=== PATIENT | male | born 1955 | race American Indian/Alaskan Native ===

== ENCOUNTER 2018-05-19 05:57 | Day surgery (SDC) | payer MEDICARE, OTHER ==
[2018-05-09 16:18] VITALS: BMI 23.7
[2018-05-19 06:50] LABS: BASO # 0.1 K/uL (0.0-0.2); BASO % 1.3 % (0.0-2.0); EOS # 0.3 K/uL (0.0-0.7); EOS % 7.1 % (0.0-4.0); HEMOGLOBIN 14.5 g/dL (12.0-18.0); LYMPH % 22.6 % (20.0-40.0); MEAN CELL VOLUME 87.4 fl (80.0-94.0); MEAN CORPUSCULAR HEMOGLOBIN 28.5 pg (27.0-31.0); MEAN CORPUSCULAR HGB CONC 32.7 g/dL (33.0-37.0); MEAN PLATELET VOLUME 7.2 fl (7.2-11.7); MONO # 0.5 K/uL (0.0-0.8); MONO % 11.5 % (0.0-10.0); NEUT # 2.6 K/uL (1.8-7.0); NEUT % 57.5 % (50.0-75.0); RBC 5.07 Mil/uL (4.40-5.90); RED CELL DISTRIBUTION WIDTH 13.6 % (11.5-14.5); WHITE BLOOD COUNT 4.5 K/uL (4.8-10.8)
[2018-05-19] MEDS ORDERED: Lactated Ringer's 1,000 ML IV ONE ×4 (07:15→11:04)
--- NOTE | 2018-05-19 07:18 | CP.PCM.CON ---
History of Present Illness - History of Present Illness History of Present Illness: ORthopedic consultation Dr. Rodriguez 62M complains of left shoulder pain due to DJD failed conservative mgmt and elected for total shoulder replacement. He has prior shoulder surgery on both shoulders. PSH: B THR, R TKR, achilles PMH: Depression denies history of bleeding disorder, blood clots, CAD/CVA/stents, seizure disorder Review of Systems - Review of Systems All systems: reviewed and no additional remarkable complaints except - Musculoskeletal Musculoskeletal: As Per HPI Past Patient History - Past Medical History & Family History Past Medical History?: Yes Past Family History: Reviewed and not pertinent - Past Social History Smoking Status: Unknown If Ever Smoked - CARDIAC Hx Cardiac Disorders: No - PULMONARY Hx Respiratory Disorders: Yes Hx Asthma: Yes - NEUROLOGICAL Hx Neurological Disorder: No - HEENT Hx HEENT Problems: Yes Other/Comment: loss vision 30% - RENAL Hx Chronic Kidney Disease: No - ENDOCRINE/METABOLIC Hx Endocrine Disorders: No - HEMATOLOGICAL/ONCOLOGICAL Hx Blood Disorders: No Hx Blood Transfusions: No - INTEGUMENTARY Hx Dermatological Problems: No - MUSCULOSKELETAL/RHEUMATOLOGICAL Hx Herniated Disk: Yes (lumbar) - GENITOURINARY/GYNECOLOGICAL Hx Genitourinary Disorders: No - PSYCHIATRIC Hx Psychophysiologic Disorder: Yes Hx Depression: Yes - SURGICAL HISTORY Hx Surgeries: Yes Hx Arthroscopy: Yes (acl knees, B shoulder) Hx Joint Replacement: Yes (andrey. hips; right knee) Other/Comment: lung biopsy - ANESTHESIA Hx Anesthesia: Yes Hx Anesthesia Reactions: No Hx Malignant Hyperthermia: No Has any member of the family had a problem w/ anesthesia?: No Meds Allergies/Adverse Reactions: Allergies Allergy/AdvReac Type Severity Reaction Status Date / Time PORK Allergy HIVES Verified 05/19/18 09:19 Physical Exam - Constitutional Appears: Well, No Acute Distress - Head Exam Head Exam: ATRAUMATIC - Expanded Upper Extremities Exam Left Neuro motor exam: finger 2-5 abduction intact, thumb abduction, thumb IP flexion intact, thumb opposition intact, wrist extension intact Neurosensory exam: median nerve intact, radial nerve intact, ulnar nerve intact (noted axillary nerve weakness, deltoid atrophy) Vascular exam: radial pulse, normal capillary refill - Neurological Exam Neurological exam: Alert, Oriented x3 - Psychiatric Exam Psychiatric exam: Normal Affect, Normal Mood - Skin Skin Exam: Dry, Intact, Normal Color, Warm Additional comments: well healed [id number] scar lateral shoulder Results - Vital Signs Recent Vital Signs: Last Vital Signs Temp 98 F 05/19/18 07:03 Pulse 85 05/19/18 07:03 Resp 20 05/19/18 07:03 BP 124/89 05/19/18 07:03 Pulse Ox 98 05/19/18 07:03 - Labs Result Diagrams: 05/19/18 06:45 Labs: Laboratory Results - last 24 hr 05/19/18 06:45 WBC 4.5 L RBC 5.07 Hgb 14.5 Hct 44.3 MCV 87.4 MCH 28.5 MCHC 32.7 L RDW 13.6 Plt Count 278 MPV 7.2 Neut % (Auto) 57.5 Lymph % (Auto) 22.6 [place] % (Auto) 11.5 H Eos % (Auto) 7.1 H Baso % (Auto) 1.3 Neut # (Auto) 2.6 Lymph # (Auto) 1.0 [place] # (Auto) 0.5 Eos # (Auto) 0.3 Baso # (Auto) 0.1 Assessment & Plan (1) DJD of left shoulder Assessment and Plan: for total shoulder replacement medical clearance on chart, reviewed NPO T&S Status: Acute
[2018-05-19] MEDS ORDERED: Rocuronium 10 mg/ml (5 ml) ONE ×2 (07:20→09:00)
[2018-05-19] MEDS ORDERED: Succinylcholine Chloride 20 mg/ml Syr (5 ml) IV ONE (07:20)
[2018-05-19] MEDS ORDERED: Propofol 10 mg/ml Inj (20 ML) ONE (07:20)
[2018-05-19] MEDS ORDERED: Etomidate 20 mg/10ml Inj IV ONE (07:21)
[2018-05-19] MEDS ORDERED: Bupivacaine HCl/Epi 0.5% 1:20000 30 ML SOL IJ ONE (07:25)
[2018-05-19] MEDS ORDERED: EPINEPHrine 1 mg/ml (1:1000) Inj ONE (07:29)
[2018-05-19] MEDS ORDERED: Absorbable Gelatin Sponge Size 12-7 ONE (07:29)
[2018-05-19] MEDS ORDERED: Thrombin Topical 5,000 Int Units Spray Kit ONE (07:30)
--- NOTE | 2018-05-19 07:37 | CP.PCM.HP ---
History of Present Illness - History of Present Illness History of Present Illness: CC: Left shoulder pain HPI: 62 year old male patient, with PMHx of asthma, depression, and sarcoidosis, seen and evaluated in [facility] for left total shoulder replacement. Patient states that his shoulder has been hurting him for 2-3 years and he has failed conservative treatment requiring surgical intervention at this time. He states t hat he has been NPO since yesterday evening. He admits to having surgery in the past and denies any adverse reactions to anesthesia. Denies nausea, vomiting, fever, shortness of breath, chest pains. PMD: Bang Ortiz MD PMHx: Asthma, depression, sarcoidosis, decreased vision to eyes b/l PSHx: B/L knee arthroscopy, R total knee replacement, b/l total hip replacement, lung biopsy SHx: 1 cigar every other month, socially drinks alcohol, cocaine use 2 weeks ago Meds: Valium, Seroquel, Lasix, Pred Forte, Vitamin B, Fish oil ALL: Pork Present on Admission - Present on Admission Any Indicators Present on Admission: No Review of Systems - Constitutional Constitutional: As Per HPI - EENT Eyes: As Per HPI Past Patient History - Past Medical History & Family History Past Medical History?: Yes Past Family History: Reviewed and not pertinent - Past Social History Smoking Status: Unknown If Ever Smoked Cigar Use: Yes (Once every other month ) Alcohol: Social Drugs: Cocaine - CARDIAC Hx Cardiac Disorders: No - PULMONARY Hx Respiratory Disorders: Yes Hx Asthma: Yes - NEUROLOGICAL Hx Neurological Disorder: No - HEENT Hx HEENT Problems: Yes Other/Comment: loss vision 30% - RENAL Hx Chronic Kidney Disease: No - ENDOCRINE/METABOLIC Hx Endocrine Disorders: No - HEMATOLOGICAL/ONCOLOGICAL Hx Blood Disorders: No Hx Blood Transfusions: No - INTEGUMENTARY Hx Dermatological Problems: No - MUSCULOSKELETAL/RHEUMATOLOGICAL Hx Herniated Disk: Yes (lumbar) - GENITOURINARY/GYNECOLOGICAL Hx Genitourinary Disorders: No - PSYCHIATRIC Hx Psychophysiologic Disorder: Yes Hx Depression: Yes - SURGICAL HISTORY Hx Surgeries: Yes Hx Arthroscopy: Yes (acl knees, B shoulder) Hx Joint Replacement: Yes (andrey. hips; right knee) Other/Comment: lung biopsy - ANESTHESIA Hx Anesthesia: Yes Hx Anesthesia Reactions: No Hx Malignant Hyperthermia: No Has any member of the family had a problem w/ anesthesia?: No Meds Allergies/Adverse Reactions: Allergies Allergy/AdvReac Type Severity Reaction Status Date / Time PORK Allergy HIVES Verified 05/09/18 16:18 Physical Exam - Constitutional Appears: Non-toxic, No Acute Distress - Head Exam Head Exam: ATRAUMATIC, NORMOCEPHALIC - Eye Exam Eye Exam: Normal appearance Pupil Exam: NORMAL ACCOMODATION - ENT Exam ENT Exam: Normal Exam - Neck Exam Neck exam: Positive for: Normal Inspection - Respiratory Exam Respiratory Exam: Clear to Auscultation Bilateral, NORMAL BREATHING PATTERN - Cardiovascular Exam Cardiovascular Exam: REGULAR RHYTHM - GI/Abdominal Exam GI & Abdominal Exam: Normal Bowel Sounds, Soft - Extremities Exam Extremities exam: Positive for: normal inspection - Neurological Exam Neurological exam: Alert, Oriented x3 - Psychiatric Exam Psychiatric exam: Normal Affect, Normal Mood - Skin Skin Exam: Warm Results - Vital Signs Recent Vital Signs: Last Vital Signs Temp 98 F 05/19/18 07:03 Pulse 85 05/19/18 07:03 Resp 20 05/19/18 07:03 BP 124/89 05/19/18 07:03 Pulse Ox 98 05/19/18 07:03 - Labs Result Diagrams: 05/19/18 06:45 Labs: Laboratory Results - last 24 hr 05/19/18 06:45 WBC 4.5 L RBC 5.07 Hgb 14.5 Hct 44.3 MCV 87.4 MCH 28.5 MCHC 32.7 L RDW 13.6 Plt Count 278 MPV 7.2 Neut % (Auto) 57.5 Lymph % (Auto) 22.6 [place] % (Auto) 11.5 H Eos % (Auto) 7.1 H Baso % (Auto) 1.3 Neut # (Auto) 2.6 Lymph # (Auto) 1.0 [place] # (Auto) 0.5 Eos # (Auto) 0.3 Baso # (Auto) 0.1 Assessment & Plan - Assessment and Plan (Free Text) Assessment: 62 year old male patient, with PMHx of asthma, depression, and sarcoidosis, admitted for left total shoulder replacement. Plan: 1) Left shoulder degenerative joint disease - Acute - Patient plan for OR today for L total shoulder replacement with Dr. Rodriguez - Patient medically optimized for surgery - NPO status confirmed - Medical clearance from PMD in chart- CBC, CXR, ECG reviewed 2) Asthma - Chronic 3) Depression - Chronic 3) DVT prophylaxis -SCDs for now - Date & Time Date: 05/19/18 Time: 07:29
[2018-05-19] MEDS ORDERED: Midazolam 2 MG/2 ML VIAL ONE (08:06)
[2018-05-19] MEDS ORDERED: Sevoflurane - Inhalation Anesthetic Liq (250 ml) ONE (08:39)
[2018-05-19 08:43] LABS: BARBITURATES, UR NEGATIVE (NEGATIVE); BENZODIAZEPINES, UR POSITIVE (NEGATIVE); OPIATES, UR NEGATIVE (NEGATIVE); PHENCYCLIDINE, UR NEGATIVE (NEGATIVE)
[2018-05-19] MEDS ORDERED: Dexamethasone 4 mg/1 ml ONE (08:43)
[2018-05-19] MEDS ORDERED: Phenylephrine 10 mg/ml Inj ONE (09:12)
[2018-05-19] MEDS ORDERED: Neostigmine 1:1000 (1 mg/ml) Inj ONE (10:30)
--- NOTE | 2018-05-19 10:57 | PCM.SURG1 ---
Surgeon's Initial Post Op Note - Surgeon's Notes Surgeon: Michael Traffic I Manager: 1st assist Behzad Longoria PA-C/ 2nd assist DIMITRIS Puente Type of Anesthesia: General Endo, Block Regional Anesthesia Administered By: DR fenton Pre-Operative Diagnosis: Rotator cuff arthropathy L shoulder Operative Findings: arthropathy L shoulder. retained anchors. labral tear L shoulder Post-Operative Diagnosis: as above Operation Performed: L Reverse total shoulder replacement. repair L rotator cuff. Biceps tenodesis (open) Specimen/Specimens Removed: rotator cuff/arthritic head Estimated Blood Loss: EBL {In ML}: 40 Blood Products Given: N/A Drains Used: No Drains Post-Op Condition: Fair Date of Surgery/Procedure: 05/19/18 Time of Surgery/Procedure: 09:00 (time in room/anesthesia indcution time)
[2018-05-19] MEDS ORDERED: Sodium Chloride 0.9% 1,000 ML IV SCH (11:15)
--- NOTE | 2018-05-19 11:45 | PCM.ANESB1 ---
Interscalene Block - Brachial Plexus Date of Procedure: 05/19/18 Anesthesiologist: Saturnino Pre-Procedure Diagnosis: Advanced arthritis left shoulder Post-Procedure Diagnosis: Same Procedure Performed: Interscalene Block of Brachial Plexus Left - Procedure Interscalene Block of Brachial Plexus: This procedure was explained to the patient that it is for post-operative pain management. Consent was obtained after a thorough discussion with the patient regarding the benefits and possible complications of local anesthetic block of the Brachial Plexus at the Interscalene area. The patient was brought to the Operating Room and standard monitors were applied. Time out was held with the circulating nurse to confirm the correct surgery and appropriate block. After applying Oxygen by nasal cannula and administering IV Sedation, the patient's head was gently rotated away from the __left____operative shoulder and the anterior scalene groove was carefully palpated. The ultrasound transducer was then applied to the skin in the transverse plane and the brachial plexus was visualized lateral to the carotid artery and in between the anterior and middle scalene muscles. After identification,the anterior lateral portion of the neck was prepped with Chloraprep and Lidocaine 1% was injected subcutaneously for topical analgesia. At this point, a # 22 gauge Stimuplex 2 inches insulated needle was inserted into the interscalene groove and directed in a caudal and midline direction. The needle was inserted lateral to the ultrasound transducer in-plane towards the brachial plexus in a [id number] direction. Needle advancement was performed carefully under direct ultrasound visualization. Nerve stimulator was used and twitched of the affected extremity including the hand brachialis muscles, biceps and the deltoid was obtained at a current of __0.4___MA. After repeated negative aspiration,__2___cc of_0.5% ____,___bupivicaine with 1:200,000 epinephrine were injected and this was followed with _28____cc of __0.5___% _Bupivacaine with 1:200,000 epinephrine . Under ultrasound guidance the local anesthetics were observed surrounding the roots of the brachial plexus. The needle was removed intact. The patient had stable vital signs, was conscious and in no apparent distress. The patient tolerated the interscalene block of the bracheal plexus well with stable vital signs and was prepared for subsequent surgery.
[2018-05-19] MEDS: HYDROmorphone 0.5 mg/0.5 ml ISec IVP PRN ×3 (11:55→20:53)
--- NOTE | 2018-05-19 12:39 | RAD ---
Date of service: 05/19/2018 PROCEDURE: Radiographs of the Left Shoulder HISTORY: in pacue s/p TSA COMPARISON: No prior. FINDINGS: BONES: Patient status post left total shoulder replacement with hardware in situ in adequate apparent position. No destructive bony lesion appreciated or definite fracture identified. JOINTS: No subluxation or dislocation. Degenerative changes are mild to moderate at the acromioclavicular joint. SOFT TISSUES: Postop changes are mild overlying left shoulder with skin ashley present. OTHER FINDINGS: None. IMPRESSION: Status post left TSR with limited postoperative change appreciated. Degenerative changes acromioclavicular joint left shoulder.
[2018-05-19] MEDS: Lactated Ringer's 1,000 ML IV SCH ×2 (16:42→22:30)
[2018-05-19] MEDS: Oxycodone/Acetaminophen 5/325 mg Tab PO PRN ×2 (18:46→23:38)
[2018-05-19] MEDS: ceFAZolin 2 GM in Sodium Chloride 0.9% 100 ML IVPB SCH (19:29)
[2018-05-20] MEDS: HYDROmorphone 0.5 mg/0.5 ml ISec IVP PRN ×4 (01:08→14:15)
[2018-05-20] MEDS: ceFAZolin 2 GM in Sodium Chloride 0.9% 100 ML IVPB SCH (01:26)
[2018-05-20 06:12] LABS: HEMOGLOBIN 12.1 g/dL (12.0-18.0); MEAN CELL VOLUME 87.3 fl (80.0-94.0); MEAN CORPUSCULAR HEMOGLOBIN 28.1 pg (27.0-31.0); MEAN CORPUSCULAR HGB CONC 32.2 g/dL (33.0-37.0); RBC 4.32 Mil/uL (4.40-5.90); RED CELL DISTRIBUTION WIDTH 13.1 % (11.5-14.5); WHITE BLOOD COUNT 13.3 K/uL (4.8-10.8)
[2018-05-20 06:22] LABS: BLOOD UREA NITROGEN 23 mg/dl (9-20); CALCIUM 9.2 mg/dL (8.4-10.2); GFR NON-AFRICAN AMERICAN 56
--- NOTE | 2018-05-20 07:55 | CP.PCM.PN ---
Subjective - Date & Time of Evaluation Date of Evaluation: 05/20/18 Time of Evaluation: 07:30 - Subjective Subjective: Patient seen and examined at bedside comfortable. Pain well controlled overnight due to effects of nerve block. Notes that he has had difficulties ambulating due to BLE weakness and imbalance prior to yesterday's surgery. Otherwise no other complaints in regards to L shoulder. Denies CP/SOB/N/fever/dizziness. Objective - Vital Signs/Intake and Output Vital Signs (last 24 hours): Temp Pulse Resp BP Pulse Ox 97.8 F 79 19 99/65 L 96 05/20/18 03:04 05/20/18 03:04 05/20/18 03:04 05/20/18 03:04 05/20/18 03:04 - Medications Medications: Current Medications Diazepam (Valium) 10 mg PO DAILY [facility] Docusate Sodium (Colace) 100 mg PO BID [facility] Last Admin: 05/19/18 18:41 Dose: 100 mg Hydromorphone HCl (Dilaudid) 0.5 mg IVP Q4 PRN PRN Reason: Pain, severe (8-10) Last Admin: 05/20/18 05:11 Dose: 0.5 mg Sodium Chloride (Sodium Chloride 0.9%) 1,000 mls @ 80 mls/hr IV .[id number] [facility] Stop: 05/20/18 11:02 Last Admin: 05/19/18 16:43 Dose: Not Given Lactated Ringer's (Lactated Ringer's) 1,000 mls @ 100 mls/hr IV .Q10H [facility] Last Admin: 05/19/18 22:30 Dose: Not Given Oxycodone/Acetaminophen (Percocet 5/325 Mg Tab) 1 tab PO Q4 PRN PRN Reason: Pain, moderate (4-7) Stop: 05/22/18 11:02 Last Admin: 05/19/18 23:38 Dose: 1 tab Quetiapine Fumarate (Seroquel) 400 mg PO HS [facility] Last Admin: 05/19/18 23:21 Dose: 400 mg - Labs Labs: 05/20/18 05:30 05/20/18 05:30 - Extremities Exam Additional comments: LUE: shoulder imm in place Dressings CDI sensation and motor intact AXN/MN/UN/RN radial pulse intact Assessment and Plan (1) DJD of left shoulder Assessment & Plan: POD# 1 s/p L TSR -pain control -keep immobilized in shoulder brace, NWB VALDEMAR -PT/OT, spoke to Yazmin CRYSTAL, suggest [facility] -orthopedically stable for d/c to [facility] -above d/w Dr. Rodriguez in agreement Status: Acute
[2018-05-20 08:17] VITALS: RESP 20
[2018-05-20] MEDS: Lactated Ringer's 1,000 ML IV SCH (08:21)
--- NOTE | 2018-05-20 10:19 | CP.PCM.DIS ---
Provider - Provider Date of Admission: 05/19/18 11:01 Attending physician: Javed Tucker MD Primary care physician: PMD: Bang Ortiz MD Consults: 05/19/18 11:01 Case Management Referral Routine Comment: Physician Instructions: Reason For Exam: d/c home Reason for Referral: Discharge Planning 05/19/18 12:04 Orthopedic Consult Routine Comment: Consulting Provider: Karl Rodriguez III Consulting Physician: Karl Rodriguez III Reason for Consult: TSA Time Spent in preparation of Discharge (in minutes): 30 Hospital Course - Lab Results Lab Results: Most Recent Lab Values WBC 13.3 K/uL (4.8-10.8) H D 05/20/18 05:30 RBC 4.32 Mil/uL (4.40-5.90) L 05/20/18 05:30 Hgb 12.1 g/dL (12.0-18.0) D 05/20/18 05:30 Hct 37.7 % (35.0-51.0) 05/20/18 05:30 MCV 87.3 fl (80.0-94.0) 05/20/18 05:30 MCH 28.1 pg (27.0-31.0) 05/20/18 05:30 MCHC 32.2 g/dL (33.0-37.0) L 05/20/18 05:30 RDW 13.1 % (11.5-14.5) 05/20/18 05:30 Plt Count 266 K/uL (130-400) 05/20/18 05:30 MPV 7.2 fl (7.2-11.7) 05/19/18 06:45 Neut % (Auto) 57.5 % (50.0-75.0) 05/19/18 06:45 Lymph % (Auto) 22.6 % (20.0-40.0) 05/19/18 06:45 [place] % (Auto) 11.5 % (0.0-10.0) H 05/19/18 06:45 Eos % (Auto) 7.1 % (0.0-4.0) H 05/19/18 06:45 Baso % (Auto) 1.3 % (0.0-2.0) 05/19/18 06:45 Neut # (Auto) 2.6 K/uL (1.8-7.0) 05/19/18 06:45 Lymph # (Auto) 1.0 K/uL (1.0-4.3) 05/19/18 06:45 [place] # (Auto) 0.5 K/uL (0.0-0.8) 05/19/18 06:45 Eos # (Auto) 0.3 K/uL (0.0-0.7) 05/19/18 06:45 Baso # (Auto) 0.1 K/uL (0.0-0.2) 05/19/18 06:45 Sodium 137 mmol/l (132-148) 05/20/18 05:30 Potassium 4.5 MMOL/L (3.6-5.0) 05/20/18 05:30 Chloride 98 mmol/L (98-107) 05/20/18 05:30 Carbon Dioxide 26 mmol/L (22-30) 05/20/18 05:30 Anion Gap 18 (10-20) 05/20/18 05:30 BUN 23 mg/dl (9-20) H 05/20/18 05:30 Creatinine 1.3 mg/dl (0.8-1.5) 05/20/18 05:30 Est GFR ( Amer) > 60 05/20/18 05:30 Est GFR (Non-Af Amer) 56 05/20/18 05:30 Random Glucose 139 mg/dL (75-110) H 05/20/18 05:30 Calcium 9.2 mg/dL (8.4-10.2) 05/20/18 05:30 Urine Opiates Screen Negative (NEGATIVE) 05/19/18 08:05 Urine Methadone Screen Negative (NEGATIVE) 05/19/18 08:05 Ur Barbiturates Screen Negative (NEGATIVE) 05/19/18 08:05 Ur Phencyclidine Scrn Negative (NEGATIVE) 05/19/18 08:05 Ur Amphetamines Screen Negative (NEGATIVE) 05/19/18 08:05 U Benzodiazepines Scrn Positive (NEGATIVE) 05/19/18 08:05 U Oth Cocaine Metabols Positive (NEGATIVE) H 05/19/18 08:05 U Cannabinoids Screen Negative (NEGATIVE) 05/19/18 08:05 Blood Type A POSITIVE 02/11/19 06:30 Blood Type Confirm A POSITIVE 05/19/18 07:55 Antibody Screen Negative 05/19/18 06:30 BBK History Checked No verified bt 05/19/18 06:30 - Hospital Course Hospital Course: 62 year old male patient, with PMHx of asthma, depression, and sarcoidosis, admitted for SDS extended stay following left total shoulder replacement. During his hospital course, - Date & Time of H&P Date of H&P: 05/20/18 Time of H&P: 10:22 Discharge Exam - Head Exam Head Exam: ATRAUMATIC, NORMOCEPHALIC - Eye Exam Eye Exam: Normal appearance - Respiratory Exam Respiratory Exam: NORMAL BREATHING PATTERN, UNREMARKABLE - Cardiovascular Exam Cardiovascular Exam: REGULAR RHYTHM - GI/Abdominal Exam GI & Abdominal Exam: Normal Bowel Sounds - Extremities Exam Additional comments: Left upper extremity immobilized in splint Patient able to wiggle fingers CFT < 3 seconds - Neurological Exam Neurological exam: Alert, Oriented x3 - Psychiatric Exam Psychiatric exam: Normal Affect, Normal Mood - Skin Skin Exam: Warm Discharge Plan - Follow Up Plan Condition: GOOD Disposition: HOME/ ROUTINE Instructions: Shoulder Replacement (DC), How to Use a Shoulder Sling Additional Instructions: follow up with primary MD and Dr. Rodriguez 1 week or as indicated by surgeon Non weight bearing to left shoulder Referrals: Karl Rodriguez III, MD [Staff Provider] - Bang Vallecillo MD [Family Provider] -
--- NOTE | 2018-05-20 12:15 | OP ---
PROCEDURE DATE: 05/19/2018 PREOPERATIVE DIAGNOSES: 1. Rotator cuff arthropathy, left shoulder. 2. Status post failed left rotator cuff repair. OPERATIVE FINDINGS: 1. Rotator cuff arthropathy of left shoulder/arthritis of left shoulder. 2. Retained anchors. 3. Labral tear, left shoulder. POSTOPERATIVE DIAGNOSES: 1. Rotator cuff arthropathy, left shoulder. 2. Status post failed left rotator cuff repair. OPERATIONS PERFORMED: 1. Left reverse total shoulder replacement. 2. Repair of left rotator cuff. 3. Biceps tenodesis, open. 4. Removal of hardware, deep. SURGEON: Karl Rodriguez MD METAL NUMERICAL TOOL PROGRAMMER: Car Longoria PA-C SECOND [employer] SALESPERSON: TROY Cyr, certified registered nursing assistant foreman. SPECIMENS REMOVED: Arthritic head rotator cuff tissue anchor. ESTIMATED BLOOD LOSS: 40 mL. BLOOD PRODUCTS: No blood products given. DRAINS USED: No drains. POSTOPERATIVE CONDITION: Stable. TIME OF SURGERY/PROCEDURE: Time in the room 08:00 a.m.; incision time 09:00 a.m. OPERATIVE INDICATION: Brian Reinoso is a 62-year-old gentleman, who approximately 7 years ago had a rotator cuff repair done elsewhere. The patient has been under the care of Dr. Hernandez. The patient was indicated for shoulder replacement arthroplasty. The doctor retired. Pros, cons, risks and benefits of reverse shoulder replacement arthroplasty were discussed. The possibility of mechanical failure, infection, thromboembolic disease, possibility of secondary or tertiary surgery was discussed. The thought process of the reverse shoulder arthroplasty had been discussed with the patient. The patient could no longer stand the discomfort and wished the surgery to be accomplished. He had decided to have the surgery several months ago, but then again the surgeon who was dealing with him retired. OPERATIVE PROCEDURE: After having obtained informed consent in the above fashion, after having identified side, site and procedure and a critical pause/time-out, after the satisfactory induction of the anesthetic, the patient was identified as Emile Reinoso. In the modified moya chair position, the left upper extremity was prepped and free draped in the usual fashion for an upper extremity surgery. The topographic anatomy of the shoulder was marked, spine of scapula, lateral aspect of the acromion and coracoid process. An incision was described from the lateral third of the clavicle to the point of the acromion. The skin incision was infiltrated with 10 mL of 1% lidocaine with 1:1000 epinephrine diluted in 250 mL of saline. The skin incision was carried down through the skin and subcutaneous tissue. Hemostasis was controlled with the Aquamantys. The deltopectoral interval was identified. The deltopectoral interval was developed. There was a great deal of damage from the former open rotator cuff repair. This having been accomplished, with external rotation, an incision was accomplished and the remaining rotator cuff repair of 1 cm from the lesser tuberosity. With further rotation of the head, the rotator cuff flap was marked. The lower subscapular vessels were controlled. The shoulder was dislocated and the biceps tenotomy was accomplished. This having been accomplished, the intramedullary canal of the humerus was entered. The humeral osteotomy was accomplished using the intramedullary guide in line with the 20 degrees of retroversion. This having been accomplished, humeral osteotomy having been accomplished, further release was accomplished. The bone was protected with a bone protector, and at this point in time, the glenoid was exposed. The glenoid labrum was torn. The glenoid labrum was excised. The glenoid having been exposed, the guide was placed. The guidewire was introduced. Reaming was accomplished and the appropriate sized glenosphere post was introduced. The glenoid metal post was introduced after reaming had been accomplished and it was fixed with 20 mm screw superiorly and 25 mm screw inferiorly. The appropriate sized glenosphere was impacted. The screw was used to fix the glenosphere in the glenoid plate. This having been accomplished, the fixation was found to be excellent. Attention was turned to the humerus. Sequential reaming was carried out to a 17 and trialing was accomplished with a 3 polyethylene Porter humeral component. The shoulder was reduced and found to be stable in all planes. This having been accomplished, the 17 mm humeral stem was introduced. Reaming had been accomplished. The proximal body had been affixed. The 17 mm stem was introduced in the appropriate 20 degrees of retroversion. Trialing was accomplished with the 3 mm polyethylene. The shoulder was reduced and found to be stable in all planes. This having been accomplished, the real polyethylene insert was impacted in the appropriate position. The shoulder was reduced. The wound was thoroughly irrigated. This having been accomplished, with the arm in approximately 0 degrees of forward flexion and internal rotation at 10 degrees, the rotator cuff was repaired with interrupted FiberWire sutures. A biceps tenodesis was accomplished to the rotator cuff repair with interrupted FiberWire. The wound was thoroughly irrigated. Hemostasis controlled with the Aquamantys. Closures in layers of 0 Quill for the deltopectoral interval followed by Vicryls and ashley for skin. No drain was required. Compression dressing and shoulder immobilizers applied. The patient was stable in Recovery. Postoperative x-rays with acceptable position of construct. Karl Rodriguez MD
--- NOTE | 2018-05-20 12:32 | CP.PCM.PN ---
Subjective - Date & Time of Evaluation Date of Evaluation: 05/20/18 Time of Evaluation: 12:32 - Subjective Subjective: Patient seen this AM eating breakfast. Patient afebrile and hemodynamically stable. No acute events overnight and in NAD. Patient reports pain is well controlled to shoulder, however admits to hip pain. Denies nausea/vomiting/fever/chills/shortness of breath. Objective - Vital Signs/Intake and Output Vital Signs (last 24 hours): Temp Pulse Resp BP Pulse Ox 97.8 F 86 20 102/60 96 05/20/18 08:16 05/20/18 08:55 05/20/18 08:16 05/20/18 08:16 05/20/18 08:16 - Medications Medications: Current Medications Diazepam (Valium) 10 mg PO DAILY [facility] Last Admin: 05/20/18 08:27 Dose: 10 mg Docusate Sodium (Colace) 100 mg PO BID [facility] Last Admin: 05/20/18 08:27 Dose: 100 mg Hydromorphone HCl (Dilaudid) 0.5 mg IVP Q4 PRN PRN Reason: Pain, severe (8-10) Last Admin: 05/20/18 10:51 Dose: 0.5 mg Lactated Ringer's (Lactated Ringer's) 1,000 mls @ 100 mls/hr IV .Q10H [facility] Last Admin: 05/20/18 08:21 Dose: 100 mls/hr Oxycodone/Acetaminophen (Percocet 5/325 Mg Tab) 1 tab PO Q4 PRN PRN Reason: Pain, moderate (4-7) Stop: 05/22/18 11:02 Last Admin: 05/19/18 23:38 Dose: 1 tab Quetiapine Fumarate (Seroquel) 400 mg PO HS [facility] Last Admin: 05/19/18 23:21 Dose: 400 mg - Labs Labs: 05/20/18 05:30 05/20/18 05:30 - Constitutional Appears: Non-toxic, No Acute Distress - Head Exam Head Exam: ATRAUMATIC, NORMOCEPHALIC - Eye Exam Eye Exam: Normal appearance - Respiratory Exam Respiratory Exam: NORMAL BREATHING PATTERN - Cardiovascular Exam Cardiovascular Exam: REGULAR RHYTHM - GI/Abdominal Exam GI & Abdominal Exam: Soft, Normal Bowel Sounds - Extremities Exam Additional comments: LUE immobilized in splint Patient able to move fingers CFT < 3 seconds to digits - Neurological Exam Neurological Exam: Alert, Awake - Psychiatric Exam Psychiatric exam: Normal Affect, Normal Mood - Skin Skin Exam: Warm Assessment and Plan - Assessment and Plan (Free Text) Assessment: 62 year old male patient, with PMHx of asthma, depression, and sarcoidosis, admitted for left total shoulder replacement. Plan: 1) Left shoulder degenerative joint disease - Acute - POD#1 L total shoulder replacement with Dr. Rodriguez - C/w pain control, Percocet 5/325 - C/w PT/OT - Awaiting Alaris placement 2) Asthma - Chronic - Albuterol, prn 3) Depression - Chronic 3) DVT prophylaxis -SCDs for now
--- NOTE | 2018-05-20 13:23 | CP.PCM.DIS ---
Provider - Provider Date of Admission: 05/19/18 11:01 Attending physician: Javed Tucker MD Primary care physician: PMD: Bang Ortiz MD Consults: 05/19/18 11:01 Case Management Referral Routine Comment: Physician Instructions: Reason For Exam: d/c home Reason for Referral: Discharge Planning 05/19/18 12:04 Orthopedic Consult Routine Comment: Consulting Provider: Karl Rodriguez III Consulting Physician: Karl Rodriguez III Reason for Consult: TSA Time Spent in preparation of Discharge (in minutes): 30 Hospital Course - Lab Results Lab Results: Most Recent Lab Values WBC 13.3 K/uL (4.8-10.8) H D 05/20/18 05:30 RBC 4.32 Mil/uL (4.40-5.90) L 05/20/18 05:30 Hgb 12.1 g/dL (12.0-18.0) D 05/20/18 05:30 Hct 37.7 % (35.0-51.0) 05/20/18 05:30 MCV 87.3 fl (80.0-94.0) 05/20/18 05:30 MCH 28.1 pg (27.0-31.0) 05/20/18 05:30 MCHC 32.2 g/dL (33.0-37.0) L 05/20/18 05:30 RDW 13.1 % (11.5-14.5) 05/20/18 05:30 Plt Count 266 K/uL (130-400) 05/20/18 05:30 MPV 7.2 fl (7.2-11.7) 05/19/18 06:45 Neut % (Auto) 57.5 % (50.0-75.0) 05/19/18 06:45 Lymph % (Auto) 22.6 % (20.0-40.0) 05/19/18 06:45 [place] % (Auto) 11.5 % (0.0-10.0) H 05/19/18 06:45 Eos % (Auto) 7.1 % (0.0-4.0) H 05/19/18 06:45 Baso % (Auto) 1.3 % (0.0-2.0) 05/19/18 06:45 Neut # (Auto) 2.6 K/uL (1.8-7.0) 05/19/18 06:45 Lymph # (Auto) 1.0 K/uL (1.0-4.3) 05/19/18 06:45 [place] # (Auto) 0.5 K/uL (0.0-0.8) 05/19/18 06:45 Eos # (Auto) 0.3 K/uL (0.0-0.7) 05/19/18 06:45 Baso # (Auto) 0.1 K/uL (0.0-0.2) 05/19/18 06:45 Sodium 137 mmol/l (132-148) 05/20/18 05:30 Potassium 4.5 MMOL/L (3.6-5.0) 05/20/18 05:30 Chloride 98 mmol/L (98-107) 05/20/18 05:30 Carbon Dioxide 26 mmol/L (22-30) 05/20/18 05:30 Anion Gap 18 (10-20) 05/20/18 05:30 BUN 23 mg/dl (9-20) H 05/20/18 05:30 Creatinine 1.3 mg/dl (0.8-1.5) 05/20/18 05:30 Est GFR ( Amer) > 60 05/20/18 05:30 Est GFR (Non-Af Amer) 56 05/20/18 05:30 Random Glucose 139 mg/dL (75-110) H 05/20/18 05:30 Calcium 9.2 mg/dL (8.4-10.2) 05/20/18 05:30 Urine Opiates Screen Negative (NEGATIVE) 05/19/18 08:05 Urine Methadone Screen Negative (NEGATIVE) 05/19/18 08:05 Ur Barbiturates Screen Negative (NEGATIVE) 05/19/18 08:05 Ur Phencyclidine Scrn Negative (NEGATIVE) 05/19/18 08:05 Ur Amphetamines Screen Negative (NEGATIVE) 05/19/18 08:05 U Benzodiazepines Scrn Positive (NEGATIVE) 05/19/18 08:05 U Oth Cocaine Metabols Positive (NEGATIVE) H 05/19/18 08:05 U Cannabinoids Screen Negative (NEGATIVE) 05/19/18 08:05 Blood Type A POSITIVE 05/19/18 06:30 Blood Type Confirm A POSITIVE 05/19/18 07:55 Antibody Screen Negative 05/19/18 06:30 BBK History Checked No verified bt 05/19/18 06:30 - Hospital Course Hospital Course: 62 year old male patient, with PMHx of asthma, depression, and sarcoidosis, admitted for left total shoulder replacement. During his hospital course, patient underwent L total shoulder replacement with Dr. Rodriguez (DOS: 05/19/18). After the procedure, the patient was admitted for SDS extended stay to monitor pain levels. On day of discharge, patient was evaluated by physical therapy and stable for discharge home. Patient was given a prescription for percocet for pain management. Patient to follow up with Dr. Rodriguez on Saturday for continued care. - Date & Time of H&P Date of H&P: 05/20/18 Time of H&P: 14:01 Discharge Exam - Head Exam Head Exam: ATRAUMATIC, NORMOCEPHALIC Discharge Plan - Discharge Medications Prescriptions: oxyCODONE/Acetaminophen [Percocet 5/325 mg Tab] 1 tab PO Q4 PRN #30 tab PRN Reason: Pain, Moderate (4-7) - Follow Up Plan Condition: GOOD Disposition: HOME/ ROUTINE Instructions: Shoulder Replacement (DC), How to Use a Shoulder Sling Additional Instructions: follow up with Dr. Rodriguez on saturdaymay 23 at 12:30noon Non weight bearing to left shoulder Referrals: Karl Rodriguez III, MD [Staff Provider] - Bang Vallecillo MD [Family Provider] -
[2018-05-20 13:47] VITALS: O2SAT 95
[2018-05-20 16:19] VITALS: BP 130/87; PULSE 97; TEMP 98.4
[2018-05-20] MEDS ORDERED: Albuterol HFA 90 mcg/actuation (8 g) IH PRN (17:00)
[2018-05-20] MEDS ORDERED: PrednisoLONE 1% OPTH SUSP OD SCH (17:00)
== END 2018-05-20 16:35 | disposition home or self-care (01) ==
LOC: H.MEDSURG1 05:57 → H.OPSURG 05:57 → H.MEDSURG1 11:01 → UNDOADMIN 11:01 → H.MEDSURG1 15:56 → H.OPSURG 05-20 16:35
PROVIDERS: ATTEND Orthopaedic Surgery
DX: M19.012 Primary osteoarthritis, left shoulder (principal); J45.909 Unspecified asthma, uncomplicated; F32.9 Major depressive disorder, single episode, unspecified; D86.9 Sarcoidosis, unspecified; D72.829 Elevated white blood cell count, unspecified; Z96.612 Presence of left artificial shoulder joint
CPT/HCPCS: 20680; 23472; 24340; 36415; 73030; 80048; 85025; 85027; 86850; 86900; 88304; 97116; 97161; C1713; C1776; G0480; G8978; G8979; J0171; J0690; J1100; J1170; J2001; J2250; J2370; J2405; J2704; J2710; J2765; J3010; J7030; J7120